=== PATIENT | female | born 1975 | race Asian ===

== ENCOUNTER → 2016-03-16 | Outpatient (CLI) | payer OTHER ==
[2016-03-16 11:07] LABS: HEMATOCRIT 38.9 % (35.0-46.0); MEAN CELL VOLUME 80.7 FL (80.0-100.0); MEAN CORPUSCULAR HEMOGLOBIN 26.1 PG (27.0-34.0); MEAN CORPUSCULAR HGB CONC 32.3 % (32.0-36.0); PLATELET COUNT 321 TH/MM3 (150-450); RED BLOOD COUNT 4.82 MIL/MM3 (4.00-5.30); RED CELL DISTRIBUTION WIDTH 15.2 % (11.6-17.2); REVIEW FLAG FINAL; WHITE BLOOD COUNT 6.7 TH/MM3 (4.0-11.0)
[2016-03-16 11:54] LABS: ALKALINE PHOSPHATASE 56 U/L (45-117); ALT (GPT) 50 U/L (10-53); ANION GAP 7 MEQ/L (5-15); AST (GOT) 26 U/L (15-37); BLOOD UREA NITROGEN 12 MG/DL (7-18); CHLORIDE 109 MEQ/L (98-107); FERRITIN 17 NG/ML (8-252); FREE T4 1.14 NG/DL (0.76-1.46); GLOMERULAR FILTRATION RATE 102 ML/MIN (>89); GLUCOSE,FASTING 121 MG/DL (74-99); HDL CHOLESTEROL 57.2 MG/DL (40.0-60.0); LDL CHOLESTEROL 101 MG/DL (0-99); MAGNESIUM 2.2 MG/DL (1.5-2.5); POTASSIUM 3.8 MEQ/L (3.5-5.1); SODIUM (NA) 142 MEQ/L (136-145); TOTAL BILIRUBIN ADULT 0.2 MG/DL (0.2-1.0); TRANSFERRIN IRON PROFILE 322 MG/DL (200-360)
[2016-03-16 13:17] LABS: HEMOGLOBIN A1a 1.1 %; HEMOGLOBIN Ao 83.7 %; HEMOGLOBIN LA1C 2.1 %; HEMOGLOBIN P3 3.9 %
== END ==
LOC: CLAB 10:30
PROVIDERS: ATTEND Family Medicine
DX: E55.9 Vitamin D deficiency, unspecified (principal); R09.82 Postnasal drip; R51 Headache; E11.9 Type 2 diabetes mellitus without complications; I50.9 Heart failure, unspecified; I10 Essential (primary) hypertension; E78.9 Disorder of lipoprotein metabolism, unspecified; R53.83 Other fatigue; Z82.49 Family history of ischemic heart disease and other diseases of the circulatory system
CPT/HCPCS: 36415; 80053; 80061; 82043; 82306; 82607; 82728; 82746; 83036; 83540; 83550; 83735; 84439; 84443; 85027

== ENCOUNTER → 2017-04-29 | Outpatient (CLI) | payer OTHER ==
[~2017-04-29] MED LIST: ASA325 PO; CLON1TAB PO; COZA50TA PO; CYCL10TA PO; METF500T PO; REME15TA PO
[2017-04-29 09:06] LABS: HEMATOCRIT 38.3 % (35.0-46.0); HEMOGLOBIN 12.5 GM/DL (11.6-15.3); MEAN CELL VOLUME 80.5 FL (80.0-100.0); MEAN CORPUSCULAR HEMOGLOBIN 26.3 PG (27.0-34.0); MEAN CORPUSCULAR HGB CONC 32.7 % (32.0-36.0); MEAN PLATELET VOLUME 7.2 FL (7.0-11.0); PLATELET COUNT 375 TH/MM3 (150-450); RED BLOOD COUNT 4.76 MIL/MM3 (4.00-5.30); RED CELL DISTRIBUTION WIDTH 16.3 % (11.6-17.2); WHITE BLOOD COUNT 7.7 TH/MM3 (4.0-11.0)
[2017-04-29 09:22] LABS: ALBUMIN 4.1 GM/DL (3.4-5.0); AST (GOT) 21 U/L (15-37); BICARBONATE 25.2 MEQ/L (21.0-32.0); BLOOD UREA NITROGEN 13 MG/DL (7-18); CALCIUM 9.3 MG/DL (8.5-10.1); CHLORIDE 106 MEQ/L (98-107); CHOLESTEROL 157 MG/DL (120-200); GLOMERULAR FILTRATION RATE 92 ML/MIN (>89); GLUCOSE,FASTING 135 MG/DL (74-99); SODIUM (NA) 141 MEQ/L (136-145)
[2017-04-29 09:48] LABS: % SATURATION IRON PROFILE 8.1 % (20-50); ALKALINE PHOSPHATASE 58 U/L (45-117); ALT (GPT) 30 U/L (10-53); CHOLESTEROL/ HDL RATIO 2.54 RATIO; FERRITIN 10 NG/ML (8-252); FOLATE 18.8 NG/ML (3.1-17.5); FREE T4 1.13 NG/DL (0.76-1.46); HDL CHOLESTEROL 61.6 MG/DL (40.0-60.0); IRON (FE) 38 MCG/DL (50-170); LDL CHOLESTEROL 62 MG/DL (0-99); TOTAL BILIRUBIN ADULT 0.5 MG/DL (0.2-1.0); TOTAL IRON BINDING CAPACITY 469 MCG/DL (250-450); TRIGLYCERIDES 165 MG/DL (42-150)
[2017-04-29 13:47] LABS: HEMOGLOBIN A1C 6.5 % (4.3-6.0)
== END ==
LOC: CLAB 08:25
PROVIDERS: ATTEND Family Medicine
DX: R09.82 Postnasal drip (principal); R73.02 Impaired glucose tolerance (oral); R51 Headache; R53.83 Other fatigue; E66.9 Obesity, unspecified; Z82.49 Family history of ischemic heart disease and other diseases of the circulatory system
CPT/HCPCS: 36415; 80053; 80061; 82306; 82607; 82728; 82746; 83036; 83540; 83550; 84439; 84443; 85027

== ENCOUNTER 2017-05-01 13:01 | Inpatient (IN) | payer OTHER ==
[~2017-05-01] VITALS: Ht 160 cm; Wt 72.4 kg
[~2017-05-01 13:01] MED LIST changes: -ASA325 PO; -CLON1TAB PO; -CYCL10TA PO; -REME15TA PO
[2017-05-01] MEDS ORDERED: GADOBENATE DIM PF 529 MG/ML 5 ML VIAL (for RAD MRI) IV ONE (13:02)
[2017-05-01 13:03] VITALS: BP 197/91; PULSE 92; RESP 18; O2SAT 100
[2017-05-01] MEDS ORDERED: SODIUM CHLORIDE 0.9% FLUSH 10 ML FLUSH IVF PRN (13:15)
[2017-05-01 13:41] LABS: AUTOMATED NEUTROPHIL # 5.2 TH/MM3 (1.8-7.7); BASOPHIL % 0.6 % (0.0-2.0); EOSINOPHIL % 0.1 % (0.0-4.0); HEMATOCRIT 40.9 % (35.0-46.0); HEMOGLOBIN 13.4 GM/DL (11.6-15.3); LYMPH % 21.2 % (9.0-44.0); LYMPHOCYTE # 1.5 TH/MM3 (1.0-4.8); MEAN CELL VOLUME 80.5 FL (80.0-100.0); MEAN CORPUSCULAR HEMOGLOBIN 26.4 PG (27.0-34.0); MEAN CORPUSCULAR HGB CONC 32.8 % (32.0-36.0); MEAN PLATELET VOLUME 7.3 FL (7.0-11.0); MONO % 3.9 % (0.0-8.0); MONOCYTE # 0.3 TH/MM3 (0-0.9); NEUT % 74.2 % (16.0-70.0); PLATELET COUNT 413 TH/MM3 (150-450); RED BLOOD COUNT 5.07 MIL/MM3 (4.00-5.30); RED CELL DISTRIBUTION WIDTH 16.4 % (11.6-17.2); WHITE BLOOD COUNT 6.9 TH/MM3 (4.0-11.0)
--- NOTE | 2017-05-01 13:47 | RADRPT ---
EXAM DATE/TIME: 05/01/2017 13:33 [facility] COMPARISON: No previous studies available for comparison. INDICATIONS : Intermittent right facial numbness, exhaustion. RADIATION DOSE: 34.79 CTDIvol (mGy) MEDICAL HISTORY : Hypertension. Diabetes mellitus type 2. SURGICAL HISTORY : None. ENCOUNTER: Initial ACUITY: 3 days PAIN SCALE: 0/10 LOCATION: cranial TECHNIQUE: Multiple contiguous axial images were obtained of the head. Using automated exposure control and adj ustment of the mA and/or kV according to patient size, radiation dose was kept as low as reasonably a chievable to obtain optimal diagnostic quality images. DICOM format image data is available electro nically for review and comparison. FINDINGS: CEREBRUM: The ventricles are normal for age. No evidence of midline shift, mass lesion, hemorrhage or acute in farction. No extra-axial fluid collections are seen. POSTERIOR FOSSA: The cerebellum and brainstem are intact. The 4th ventricle is midline. The cerebellopontine angle i s unremarkable. EXTRACRANIAL: The visualized portion of the orbits is intact. SKULL: The calvaria is intact. No evidence of skull fracture. CONCLUSION: Normal examination. Gokul Hensley MD on May 01, 2017 at 13:43 Board Certified Radiologist. This report was verified electronically.
[2017-05-01 13:49] LABS: PROTHROMBIN TIME - PATIENT 9.8 SEC (9.8-11.6)
[2017-05-01 13:56] LABS: ALBUMIN 4.3 GM/DL (3.4-5.0); AST (GOT) 19 U/L (15-37); BICARBONATE 25.2 MEQ/L (21.0-32.0); BLOOD UREA NITROGEN 11 MG/DL (7-18); CALCIUM 9.7 MG/DL (8.5-10.1); CHLORIDE 102 MEQ/L (98-107); CREATININE 0.74 MG/DL (0.50-1.00); GLOMERULAR FILTRATION RATE 86 ML/MIN (>89); GLUCOSE,RANDOM 135 MG/DL (74-106); MAGNESIUM 2.4 MG/DL (1.5-2.5); SODIUM (NA) 138 MEQ/L (136-145)
[2017-05-01 13:57] LABS: ALT (GPT) 36 U/L (10-53)
[2017-05-01 14:01] LABS: ALKALINE PHOSPHATASE 64 U/L (45-117); TOTAL BILIRUBIN ADULT 0.5 MG/DL (0.2-1.0); TOTAL PROTEIN 8.8 GM/DL (6.4-8.2); TROPONIN I LESS THAN 0.02 NG/ML (0.02-0.05)
--- NOTE | 2017-05-01 14:13 | EKG ---
Date Performed: 05/01/2017 Time Performed: 13:07:28 PTAGE: 41 years EKG: Sinus rhythm POSSIBLE LEFT ATRIAL ENLARGEMENT NONSPECIFIC T-WAVE ABNORMALITY BORDERLINE ECG NO PREVIOUS TRACING DOCTOR: Manish Del Valle Interpretating Date/Time 05/01/2017 14:12:28
--- NOTE | 2017-05-01 15:26 | RADRPT ---
EXAM DATE/TIME: 05/01/2017 14:36 [facility] COMPARISON: No previous studies available for comparison. INDICATIONS : Aphasia. Right sided facial tingling. CONTRAST: 14 cc Multihance (gadobenate) IV MEDICAL HISTORY : Hypertension. Diabetes mellitus type 2. SURGICAL HISTORY : section. ENCOUNTER: Initial ACUITY: 1 day PAIN SCORE: 0/10 LOCATION: cranial TECHNIQUE: Multiplanar, multisequence MRI of the brain was performed both prior to and following the administrat ion of paramagnetic contrast. FINDINGS: CEREBRUM: The ventricles are normal for age. No evidence of midline shift, mass lesion, hemorrhage or acute in farction. No extraaxial fluid collections are seen. The pituitary gland and suprasellar cistern are normal in configuration. WHITE MATTER: No significant signal abnormalities are seen in the white matter. POSTERIOR FOSSA: The cerebellum and brainstem are intact. The 4th ventricle is midline. The cerebellopontine angle is unremarkable. The cerebellar tonsils are normal in position. DIFFUSION IMAGING: No focal areas of restricted diffusion are seen. No evidence of acute infarction. EXTRACRANIAL: The visualized portions of the orbits and paranasal sinuses are unremarkable. POST-CONTRAST: No abnormal areas of parenchymal or dural enhancement. No evidence of blood-brain barrier breakdown. CONCLUSION: 1. Negative pre-and postcontrast MRI of the brain. Frantz Bowers MD on May 01, 2017 at 15:21 Board Certified Radiologist. This report was verified electronically.
--- NOTE | 2017-05-01 15:28 | RADRPT ---
EXAM DATE/TIME: 05/01/2017 13:54 [facility] COMPARISON: No previous studies available for comparison. INDICATIONS : Midsternal chest pains, with pressure. Right arm numbness. MEDICAL HISTORY : None. SURGICAL HISTORY : None. ENCOUNTER: Initial ACUITY: 1 day PAIN SCORE: 9/10 LOCATION: Bilateral chest FINDINGS: A single view of the chest demonstrates the lungs to be symmetrically aerated without evidence of mas s, infiltrate or effusion. The cardiomediastinal contours are unremarkable. Osseous structures are intact. CONCLUSION: 1. No acute cardiopulmonary disease. Chaitanya Farooq MD on May 01, 2017 at 15:25 Board Certified Radiologist. This report was verified electronically.
[2017-05-01] MEDS ORDERED: DEXTROSE 50% IN WATER 50 ML VIAL(D50) IV PUSH PRN ×2 (16:00→16:45)
[2017-05-01] MEDS ORDERED: SODIUM CHLORIDE 0.9% FLUSH 10 ML FLUSH IV FLUSH PRN ×2 (16:00→16:15)
[2017-05-01] MEDS ORDERED: GLUCAGON 1 MG/ML VIAL OTHER PRN ×2 (16:00→16:45)
[2017-05-01] MEDS: ASPIRIN 325 MG TAB PO SCH (16:00)
[2017-05-01] MEDS ORDERED: NALOXONE HCL 0.4 MG/ML AMP IV PUSH PRN (16:15)
[2017-05-01] MEDS ORDERED: ONDANSETRON HCL 4 MG/2 ML VIAL IVP PRN (16:15)
[2017-05-01] MEDS ORDERED: LACTULOSE SYRUP 20 GM/30 ML CUP PO PRN (16:15)
[2017-05-01] MEDS ORDERED: MAGNESIUM HYDROXIDE SUSP 30 ML CUP PO PRN (16:15)
[2017-05-01] MEDS ORDERED: SENNOSIDES 8.6 MG TAB PO PRN (16:15)
[2017-05-01] MEDS ORDERED: BISACODYL 10 MG SUPP RECTAL PRN (16:15)
--- NOTE | 2017-05-01 16:16 | PD ---
HPI Chief Complaint: Numbness/Tingling Time Seen by Provider: 13:03 Travel History International Travel<30 days: No Contact w/Intl Traveler<30days: No Traveled to known affect area: No History of Present Illness HPI This is Ping Lopez 1975, name changed in EMR for patient privacy. This is a 41-year-old female presents emergency department for evaluation of numbness and tingling in the right upper extremity as well as some difficulty finding words started about 10 PM prior to presentation to the ER. 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 Patient then began complaining of some numbness and tingling her right upper and right lower extremity. At the insistence of her colleagues she was brought to the emergency department for evaluation. Patient appears quite anxious on arrival but is concerned that she might of had a TIA or stroke. She is a diabetic and has high blood pressure. Symptoms are moderate, her speech is resolved, duration is about 3 hours, context as above. PFSH Past Medical History Patient Takes Glucophage: Yes (04/30/17 2100) Hypertension: Yes ?: Not LMP: 3 DAYS AGO Past Surgical History Surgical History: No Previous Surgery Section: Yes (X 3) Gynecologic Surgery: Yes (3 c sections) Joint Replacement: No Pacemaker: No Other Surgery: Yes Social History Alcohol Use: No Tobacco Use: No Substance Use: No Allergies-Medications (Allergen,Severity, Reaction): Coded Allergies: Sulfa (Sulfonamide Antibiotics) (Unverified Allergy, Severe, Rash, 05/01/17 ) Reported Meds & Prescriptions Reported Meds & Active Scripts Active Review of Systems Except as stated in HPI: all other systems reviewed are Neg Physical Exam Narrative GENERAL: Well-developed well-nourished no obvious distress, quite pleasant. SKIN: Focused skin assessment warm/dry. HEAD: Atraumatic. Normocephalic. EYES: Pupils equal and round. No scleral icterus. No injection or drainage. EOMI ENT: No nasal bleeding or discharge. Mucous membranes pink and moist. NECK: Trachea midline. No JVD. CARDIOVASCULAR: Regular rate and rhythm. No murmur appreciated. RESPIRATORY: No accessory muscle use. Clear to auscultation. Breath sounds equal bilaterally. GASTROINTESTINAL: Abdomen soft, non-tender, nondistended. Hepatic and splenic margins not palpable. MUSCULOSKELETAL: No obvious deformities. No clubbing. No cyanosis. No edema. NEUROLOGICAL: Awake and alert. Cranial nerves II through XII are grossly intact and nonfocal, she has 5 out of 5 strength in all 4 extremities, [place] stroke assessment is negative, no pronator drift, ambulates with an even narrow-base gait. PSYCHIATRIC: Anxious affect, anxious mood. Insight and judgment appear to be normal at this time Data Data Last Documented VS Vital Signs Date Time Temp Pulse Resp B/P (MAP) Pulse Ox O2 Delivery O2 Flow Rate FiO2 05/01/17 13:03 92 18 197/91 (126) 100 Orders Orders Electrocardiogram (05/01/17 13:05) Ckmb (Isoenzyme) Profile (05/01/17 13:05) Complete Blood Count With Diff (05/01/17 13:05) Comprehensive Metabolic Panel (05/01/17 13:05) Magnesium (Mg) (05/01/17 13:05) Prothrombin Time / Inr (Pt) (05/01/17 13:05) Act Partial Throm Time (Ptt) (05/01/17 13:05) Troponin I (05/01/17 13:05) Chest, Single Ap (05/01/17 13:05) Ecg Monitoring (05/01/17 13:05) Iv Access Insert/Monitor (05/01/17 13:05) Oximetry (05/01/17 13:05) Oxygen Administration (05/01/17 13:05) Sodium Chloride 0.9% Flush (Ns Flush) (05/01/17 13:15) Ct Brain W/O Iv Contrast(Rout) (05/01/17 ) Urinalysis - C+S If Indicated (05/01/17 13:05) Ed Urine Pregnancytest Poc (05/01/17 13:05) Bedside Glucose BIJAN.CSUGAR (05/01/17 13:09) Mri Brain W&W/O Contrast (05/01/17 ) Gadobenate Dimeglimine Pf Inj (Multihanc (05/01/17 13:02) Nih Stroke Scale - Nihss .On admission and discharge (05/01/17 15:58) Case Management Consult (05/01/17 ) Activity Bed Rest (05/01/17 15:58) Nursing Bedside Swallow Assess .ONCE (05/01/17 15:58) Scd Bilateral/Knee High BIJAN.QSHIFT (05/01/17 15:58) Hemoglobin (Hgb) A1c (05/01/17 15:58) Lipid Profile (05/02/17 06:00) Us Carotid Arteries Comp Bilat (05/01/17 ) Mra Brain W/O Contrast (Cow) (05/01/17 ) Resp Oxygen Nc Stroke (05/01/17 ) ^ Hold Medication (05/01/17 15:58) Sodium Chloride 0.9% Flush (Ns Flush) (05/01/17 21:00) Sodium Chloride 0.9% Flush (Ns Flush) (05/01/17 16:00) Aspirin (Aspirin) (05/01/17 16:00) Bedside Glucose BIJAN.CSUGAR (05/01/17 15:58) ^ Discontinue Insulin Orders (05/01/17 15:58) Insulin Aspart Supplemtl Scale (Novolog (05/01/17 17:00) Dextrose 50% In [place] (Vial) Inj (D50w (Vi (05/01/17 16:00) Glucagon Inj (Glucagon Inj) (05/01/17 16:00) Consult Rehab Medicine (05/01/17 15:58) 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 / Telemetry BIJAN.Q8H (05/01/17 15:58) Consult Stroke Navigator (05/01/17 ) Place In Observation (05/01/17 ) Code Status (05/01/17 16:06) Vital Signs (Adult) Q4H (05/01/17 16:06) Neuro Checks Q4H (05/01/17 16:06) Bedside Glucose BIJAN.CSUGAR (05/01/17 16:06) 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 / Telemetry .CONTINUOUS (05/01/17 16:06) Diet Regular Basic (05/01/17 Dinner) Sodium Chloride 0.9% Flush (Ns Flush) (05/01/17 16:15) Sodium Chloride 0.9% Flush (Ns Flush) (05/01/17 21:00) Acetaminophen (Tylenol) (05/01/17 16:15) Ondansetron Inj (Zofran Inj) (05/01/17 16:15) Comprehensive Metabolic Panel (05/02/17 06:00) Complete Blood Count With Diff (05/02/17 06:00) Naloxone Inj (Narcan Inj) (05/01/17 16:15) Docusate Sodium-Senna (Rebeka-Colace) (05/01/17 21:00) Magnesium Hydroxide Liq (Milk Of Magnesi (05/01/17 16:15) Sennosides (Senokot) (05/01/17 16:15) Bisacodyl Supp (Dulcolax Supp) (05/01/17 16:15) Lactulose Liq (Lactulose Liq) (05/01/17 16:15) Consult Neurology (05/01/17 ) Admit Order (Ed Use Only) (05/01/17 ) Echo 2d Comp With Doppler (05/02/17 ) Labs Laboratory Tests Test 05/01/17 13:10 White Blood Count 6.9 TH/MM3 Red Blood Count 5.07 MIL/MM3 Hemoglobin 13.4 GM/DL Hematocrit 40.9 % Mean Corpuscular Volume 80.5 FL Mean Corpuscular Hemoglobin 26.4 PG Mean Corpuscular Hemoglobin Concent 32.8 % Red Cell Distribution Width 16.4 % Platelet Count 413 TH/MM3 Mean Platelet Volume 7.3 FL Neutrophils (%) (Auto) 74.2 % Lymphocytes (%) (Auto) 21.2 % Monocytes (%) (Auto) 3.9 % Eosinophils (%) (Auto) 0.1 % Basophils (%) (Auto) 0.6 % Neutrophils # (Auto) 5.2 TH/MM3 Lymphocytes # (Auto) 1.5 TH/MM3 Monocytes # (Auto) 0.3 TH/MM3 Eosinophils # (Auto) 0.0 TH/MM3 Basophils # (Auto) 0.0 TH/MM3 CBC Comment DIFF FINAL Differential Comment Prothrombin Time 9.8 SEC Prothromb Time International Ratio 1.0 RATIO Activated Partial Thromboplast Time 24.7 SEC Blood Urea Nitrogen 11 MG/DL Creatinine 0.74 MG/DL Random Glucose 135 MG/DL Total Protein 8.8 GM/DL Albumin 4.3 GM/DL Calcium Level 9.7 MG/DL Magnesium Level 2.4 MG/DL Alkaline Phosphatase 64 U/L Aspartate Amino Transf (AST/SGOT) 19 U/L Alanine Aminotransferase (ALT/SGPT) 36 U/L Total Bilirubin 0.5 MG/DL Sodium Level 138 MEQ/L Potassium Level 3.6 MEQ/L Chloride Level 102 MEQ/L Carbon Dioxide Level 25.2 MEQ/L Anion Gap 11 MEQ/L Estimat Glomerular Filtration Rate 86 ML/MIN Hemoglobin A1c 6.5 % Total Creatine Kinase 68 U/L Troponin I LESS THAN 0.02 NG/ML MDM Medical Decision Making Medical Screen Exam Complete: Yes Emergency Medical Condition: Yes Differential Diagnosis Continuing CVA is unlikely, TIA, electrolyte abnormality, hypertensive emergency , anxiety attack Narrative Course Patient with right sided numbness and tingling and some difficulty finding words earlier today. Initial workup negative including CT head and MRI of the brain. Was somewhat hypertensive on arrival but her blood pressure is improving without aggressive therapy in the ER. She was offered Ativan p.o. and she declined. Will be admitted for observation for possible TIA. Diagnosis Primary Impression: TIA (transient ischemic attack) Qualified Codes: G45.9 - Transient cerebral ischemic attack, unspecified Admitting Information Admitting Physician Requests: Observation Scripts Clonazepam (Clonazepam) 1 Mg Tab 1 MG PO HS Y for insomnia, #30 TAB 0 Refills Prov: Yasmine Jackson MD 05/02/17 Aspirin (Px Aspirin) 325 Mg Tab 325 MG PO DAILY, #30 TAB Prov: Yasmine Jackson MD 05/02/17 Cyclobenzaprine (Flexeril) 10 Mg Tab 10 MG PO TID Y for muscle spasm, #90 TAB 3 Refills Prov: Yasmine Jackson MD 05/02/17 Losartan (Cozaar) 50 Mg Tab 50 MG PO HS for Blood Pressure Management, #30 TAB 3 Refills Prov: Yasmine Jackson MD 05/02/17 Metformin (Metformin) 500 Mg Tab 500 MG PO BIDPC for Blood Sugar Management, #60 TAB 3 Refills Prov: Yasmine Jackson MD 05/02/17 Condition: Stable Anil Schulz MD May 01, 2017 16:16
--- NOTE | 2017-05-01 16:21 | MB ---
cc: Omar Vega MD, PhD DATE: 05/01/2017 REASON FOR CONSULTATION: TIA. 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 She had no weakness or motor deficits. The symptoms have been improving. She denies headaches. She denies any visual complaints. Of note, she had similar symptoms about a week ago on Saturday and Saturday. She has a history of hypertension. At times, the blood pressure does elevate. PAST MEDICAL HISTORY: Remarkable for hypertension as well as hyperlipidemia. MEDICATIONS AT HOME: She takes Cozaar as well as Metformin. She is not on any antiplatelet medications. NEUROLOGICAL EXAMINATION: Blood pressure 197/91, pulse is 92, respiratory rate is 18. Higher cortical functions at this time are normal, including speech. Cranial nerves are intact, although she does have some diminished sensitivity in the right side of the face to soft touch. There is some slight diminished sensitivity in the right upper extremity to soft touch as well. Visual collins are normal to confrontation. The pupils are 2 mm, symmetric and reactive to light. The extraocular movements are intact. There is no facial asymmetry. She can activate muscles of facial expression normally. Tongue protrudes midline. Palate elevates symmetrically. On motor examination, she has got 5/5 strength of all major muscle groups of both upper extremities. She has got no drift. Fine motor skills are normal. Reflexes are symmetric. She has got give-way weakness in both legs, mainly due to pain. She does complain of significant muscular pain mainly in the left leg and left hip area, but it does radiate down the left leg. Reflexes are 1+, symmetric. IMAGING STUDIES: Brain MRI is within normal limits. The CT scan of the brain is also normal. Chest x-ray is normal. LABORATORY DATA: White count is 6900, hemoglobin 13.4, hematocrit 40.9%, platelet count is 413,000. PT 9.8, INR 1.0, APTT 24.7. Sodium is 138, potassium 3.6, chloride 102, CO2 25.2, BUN is 11, creatinine 0.74, glucose 135, calcium 9.7, magnesium 2.4, AST 19, ALT is 36. Troponin less than 0.02. PT 9.8, INR 1, aPTT 24.7. EKG Sinus rhythm. There is evidence of left atrial enlargement, possibly nonspecific T-wave abnormalities are identified. IMPRESSION: Suspect this is probably a left hemisphere transient ischemic accident . RECOMMENDATIONS: Would allow permissive hypertension at the present time treating the blood pressure if it gets over 200/100. We will recommend starting aspirin 325 mg daily. I also recommend carotid ultrasound, echocardiogram, monitor cardiac telemetry, rule out atrial fibrillation. We will check a lipid panel as well. Would also recommend labs to rule out hypercoagulable state including a lupus anticoagulant, anticardiolipin antibody panel, Leiden Factor V, prothrombin gene mutation, protein S and protein C. If the above workup is negative, consider a transesophageal echocardiogram, which could be obtained as an outpatient. Regarding her left hip pain and leg pain, consider MRI of the left hip, although at the present time, the patient would like to hold off on this evaluation. Thank you for asking me to see this nice patient in consult. Omar Vega MD, PhD LONA/AYDE , 03:58 PM , 04:19 PM
--- NOTE | 2017-05-01 16:38 | HHI.HP ---
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 She reports that her first symptoms started on Saturday (5 days prior to admission ). Patient experiences 3 separate episodes of R arm parasthesias lasting about 20 minutes each which self-resolved. At that time, she also reported R lower facial tingling. Denies any headache, though does report possibly worse vision in the L eye over the last week. Patient has a known history of HTN, on Cozaar, and reports that surrounding these episodes, her BPs ranged 170s systolic. On the day of admission, patient was prompted to come into the ED after recurrence of her R arm numbness and tingling. Patient also was noted by those around her to experience some word finding difficulty which was transient. Patient is seen in the ED reporting symptoms are slightly improved. MRI without evidence of acute CVA. CT negative for acute changes as well. Dr. Vega, neurology at the bedside. Review of Systems Constitutional: COMPLAINS OF: Fatigue, DENIES: Diaphoretic episodes, Fever, Weight gain, Weight loss, Chills, Dizziness, Change in appetite, Night Sweats Eyes: DENIES: Eye pain, Vision loss, Double Vision Ears, nose, mouth, throat: DENIES: Hearing loss, Nasal discharge, Oral lesions , Throat pain Respiratory: DENIES: Cough, Wheezing, Shortness of breath Cardiovascular: DENIES: Syncope, Dyspnea on Exertion, Lower Extremity Edema Gastrointestinal: DENIES: Abdominal pain, Constipation, Diarrhea, Nausea, Vomiting Musculoskeletal: DENIES: Joint pain, Back pain, Neck pain Integumentary: DENIES: Pruritus, Rash Neurologic: COMPLAINS OF: Paresthesias, DENIES: Headache, Poor Balance Psychiatric: DENIES: Confusion Past Family Social History Past Medical History HTN Impaired glucose metabolism Past Surgical History section Reported Medications Allergies: Coded Allergies: Sulfa (Sulfonamide Antibiotics) (Unverified Allergy, Severe, Rash, 05/01/17 ) Active Ordered Medications Cozaar 50mg PO hs Metformin 500mg PO BIDPC Family History Grandmother with HTN and DM Social History Lives with and three children. 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 Physical Exam Vital Signs Vital Signs Date Time Temp Pulse Resp B/P (MAP) Pulse Ox O2 Delivery O2 Flow Rate FiO2 05/01/17 13:03 92 18 197/91 (126) 100 Physical Exam GENERAL: This is a well-nourished, well-developed patient, in no apparent distress. SKIN: No rashes, ecchymoses or lesions. Cool and dry. HEAD: Atraumatic. Normocephalic. No temporal or scalp tenderness. EYES: Pupils equal round and reactive. Extraocular motions intact. No scleral icterus. No injection or drainage. ENT: Nose without bleeding, purulent drainage or septal hematoma. Throat without erythema, tonsillar hypertrophy or exudate. Uvula midline. Airway patent. NECK: Trachea midline. No JVD or lymphadenopathy. Supple, nontender, no meningeal signs. CARDIOVASCULAR: Regular rate and rhythm without audible murmurs, gallops, or rubs. RESPIRATORY: Clear to auscultation. Breath sounds equal bilaterally. No wheezes , rales, or rhonchi. GASTROINTESTINAL: Abdomen soft, non-tender, nondistended. No hepato-splenomegaly , or palpable masses. No guarding. MUSCULOSKELETAL: Extremities without clubbing, cyanosis, or edema. No joint tenderness, effusion, or edema noted. No calf tenderness. NEUROLOGICAL: Awake and alert. Cranial nerves II through XII intact. Motor and sensory grossly within normal limits. Five out of 5 muscle strength in all muscle groups. Normal speech. +Subjective parasthesias in R arm dorsal aspect. 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 TTP over the L hip bursa. There is pain over L hip radiating down lateral leg to just below level of the knee, worse with movement. Laboratory Laboratory Tests Test 05/01/17 13:10 White Blood Count 6.9 Red Blood Count 5.07 Hemoglobin 13.4 Hematocrit 40.9 Mean Corpuscular Volume 80.5 Mean Corpuscular Hemoglobin 26.4 Mean Corpuscular Hemoglobin Concent 32.8 Red Cell Distribution Width 16.4 Platelet Count 413 Mean Platelet Volume 7.3 Neutrophils (%) (Auto) 74.2 Lymphocytes (%) (Auto) 21.2 Monocytes (%) (Auto) 3.9 Eosinophils (%) (Auto) 0.1 Basophils (%) (Auto) 0.6 Neutrophils # (Auto) 5.2 Lymphocytes # (Auto) 1.5 Monocytes # (Auto) 0.3 Eosinophils # (Auto) 0.0 Basophils # (Auto) 0.0 CBC Comment DIFF FINAL Differential Comment Prothrombin Time 9.8 Prothromb Time International Ratio 1.0 Activated Partial Thromboplast Time 24.7 Blood Urea Nitrogen 11 Creatinine 0.74 Random Glucose 135 Total Protein 8.8 Albumin 4.3 Calcium Level 9.7 Magnesium Level 2.4 Alkaline Phosphatase 64 Aspartate Amino Transf (AST/SGOT) 19 Alanine Aminotransferase (ALT/SGPT) 36 Total Bilirubin 0.5 Sodium Level 138 Potassium Level 3.6 Chloride Level 102 Carbon Dioxide Level 25.2 Anion Gap 11 Estimat Glomerular Filtration Rate 86 Total Creatine Kinase 68 Troponin I LESS THAN 0.02 Result Diagram: 05/01/17 1310 05/01/17 1310 Imaging Last Impressions Chest X-Ray 05/01/17 1305 Signed Impressions: Service Date/Time: Monday, May 01, 2017 13:54 - CONCLUSION: 1. No acute cardiopulmonary disease. Chaitanya Farooq MD Head CT 05/01/17 0000 Signed Impressions: Service Date/Time: Monday, May 01, 2017 13:33 - CONCLUSION: Normal examination. Gokul Hensley MD Brain MRI 05/01/17 0000 Signed Impressions: Service Date/Time: Monday, May 01, 2017 14:36 - CONCLUSION: 1. Negative pre-and postcontrast MRI of the brain. Frantz Bowers MD Caprini VTE Risk Assessment Caprini VTE Risk Assessment: Mod/High Risk (score >= 2) Caprini Risk Assessment Model Point Value = 1 Point Value = 2 Point Value = 3 Point Value = 5 Age 41-60 Minor surgery BMI > 25 kg/m2 Swollen legs Varicose veins or History of unexplained or recurrent spontaneous Oral contraceptives or hormone replacement Sepsis (< 1 month) Serious lung disease, including pneumonia (< 1 month) Abnormal pulmonary function Acute myocardial infarction Congestive heart failure (< 1 month) History of inflammatory bowel disease Medical patient at bed rest Age 61-74 Arthroscopic surgery Major open surgery (> 45 min) Laparoscopic surgery (> 45 min) Malignancy Confined to bed (> 72 hours) Immobilizing plaster cast Central venous access Age >= 75 History of VTE Family history of VTE Factor V Leiden Prothrombin [id number] Lupus anticoagulant Anticardiolipin antibodies Elevated serum homocysteine Heparin-induced thrombocytopenia Other congenital or acquired thrombophilia Stroke (< 1 month) Elective arthroplasty Hip, pelvis, or leg fracture Acute spinal cord injury (< 1 month) Prophylaxis Regimen Total Risk Factor Score Risk Level Prophylaxis Regimen 0-1 Low Early ambulation 2 Moderate Order ONE of the following: *Sequential Compression Device (SCD) *Heparin 5000 units SQ BID 3-4 Higher Order ONE of the following medications: *Heparin 5000 units SQ TID *Enoxaparin/Lovenox 40 mg SQ daily (WT < 150 kg, CrCl > 30 mL/min) *Enoxaparin/Lovenox 30 mg SQ daily (WT < 150 kg, CrCl > 10-29 mL/min) *Enoxaparin/Lovenox 30 mg SQ BID (WT < 150 kg, CrCl > 30 mL/min) AND/OR *Sequential Compression Device (SCD) 5 or more Highest Order ONE of the following medications: *Heparin 5000 units SQ TID (Preferred with Epidurals) *Enoxaparin/Lovenox 40 mg SQ daily (WT < 150 kg, CrCl > 30 mL/min) *Enoxaparin/Lovenox 30 mg SQ daily (WT < 150 kg, CrCl > 10-29 mL/min) *Enoxaparin/Lovenox 30 mg SQ BID (WT < 150 kg, CrCl > 30 mL/min) AND *Sequential Compression Device (SCD) Assessment and Plan Assessment and Plan 41yoF admitted with: Acute neurological change, TIA vs hypertensive encephalopathy Uncontrolled HTN Impaired glucose metabolism Neurology consulted Telemetry MRI/MRA Neurochecks Bed rest and permissive HTN, per neuro Will treat hypertension >200/100 Hold home Metformin and Cozaar. Code Status FULL CODE Discussed Condition With Patient, Dr. Schulz, Dr. Vega, patient's , Dr. Cruz (PCP) Problem List: (1) TIA (transient ischemic attack) ICD Codes: G45.9 - Transient cerebral ischemic attack, unspecified Plan: Will monitor with neurochecks. Telemetry monitoring Neurology has been consulted, appreciate recs of Dr. Vega rehab medicine consulted 2D echo, carotid ultrasound pending. MD to be notified for any acute neurologic changes Permissive HTN, only treat >200/100 Hypercoagulable panel (2) Impaired glucose metabolism ICD Codes: R73.09 - Other abnormal glucose Plan: Monitor accu-checks. SSI Novolog low scale as needed. Hold home Metformin A1c pending for the am (3) Uncontrolled hypertension ICD Codes: I10 - Essential (primary) hypertension Plan: Monitor BP Hold home Cozaar Allow permissive HTN, treat >200/100 with Vasotec Yasmine Jackson MD May 01, 2017 16:38
[2017-05-01] MEDS ORDERED: GLUCAGON 1 MG/ML VIAL IM PRN (16:45)
[2017-05-01] MEDS ORDERED: ENALAPRILAT 1.25 MG/ML VIAL IV PUSH PRN (16:45)
[2017-05-01] MEDS ORDERED: INSULIN ASPART SUPPLEMENTAL SCALE SQ SCH (17:00)
--- NOTE | 2017-05-01 17:01 | RADRPT ---
EXAM DATE/TIME: 05/01/2017 16:31 [facility] COMPARISON: No previous studies available for comparison. INDICATIONS : Transient ischemic attack. MEDICAL HISTORY : Hypertension. . Diabetes. SURGICAL HISTORY : section. ENCOUNTER: Initial ACUITY: 1 day PAIN SCORE: 0/10 LOCATION: Bilateral neck PEAK SYSTOLIC VELOCITIES (cm/sec): ICA/CCA RATIO: Right: 1.0 Left: 1.0 ICA: Right: 85 Left: 90 CCA: Right: 83 Left: 89 ECA: Right: 83 Left: 96 VERTEBRAL: Right: 38 antegrade Left: 48 antegrade Elevated flow velocities and ICA/CCA ratios have been found to correlate with increased degrees of vessel stenosis, calculated as percentage of diameter relative to a normal segment of distal ICA/CCA FINDINGS: RIGHT CAROTID: No significant stenosis is visualized. The waveforms are within normal limits. LEFT CAROTID: No significant stenosis is visualized. The waveforms are within normal limits. VERTEBRAL ARTERIES: Antegrade flow is seen in both vertebral arteries. MISCELLANEOUS: None. CONCLUSION: Normal examination. Gokul Hensley MD on May 01, 2017 at 16:58 Board Certified Radiologist. This report was verified electronically.
[2017-05-01] MEDS: CYCLOBENZAPRINE HCL 10 MG TAB PO PRN (17:06)
[2017-05-01] MEDS: ACETAMINOPHEN 325 MG TAB PO PRN ×2 (17:06→23:49)
[2017-05-01] MEDS: INSULIN ASPART SUPPLEMENTAL SCALE SQ SCH ×2 (17:11→23:57)
[2017-05-01 17:12] VITALS: BP 178/102; PULSE 82; RESP 20; TEMP 98.2; O2SAT 98
[2017-05-01] MEDS ORDERED: SODIUM CHLORIDE 0.9% FLUSH 10 ML FLUSH IV FLUSH SCH (21:00)
[2017-05-01] MEDS ORDERED: clonazePAM 0.5 MG TAB PO SCH (21:00)
[2017-05-01 22:36] LABS: HEMOGLOBIN A1C 6.5 % (4.3-6.0)
--- NOTE | 2017-05-01 23:44 | RADRPT ---
EXAM DATE/TIME: 05/01/2017 22:46 [facility] COMPARISON: MRI BRAIN W & W/O CONTRAST, May 01, 2017, 14:36. INDICATIONS : TIA. MEDICAL HISTORY : Diabetes mellitus type 2. Hypertension. SURGICAL HISTORY : section. ENCOUNTER: Initial ACUITY: 1 day PAIN SCORE: 0/10 LOCATION: BRAIN Please note a normal MRA of the brain does not entirely exclude the possibility of a small aneurysm, nor the possibility of distal intracranial vessel disease. TECHNIQUE: 3D time of flight MRA was performed. Source images, multiplanar STS MIP, and 3D volume MIP reconstru ctions were reviewed. FINDINGS: There is excellent visualization of the major intracranial arteries out to the second-order branch ve ssels. There is no evidence for aneurysm, vessel truncation or stenosis, and no evidence for vascula r malformation. No flow seen in the anterior communicating artery or either PCOM. CONCLUSION: 1. No evidence of vessel truncation or aneurysm. 2. Incomplete habematolel of Banda. Ap Dan MD on May 01, 2017 at 23:40 Board Certified Radiologist. This report was verified electronically.
[2017-05-01] MEDS: SODIUM CHLORIDE 0.9% FLUSH 10 ML FLUSH IV FLUSH SCH (23:56)
[2017-05-01] MEDS: DOCUSATE SODIUM 50 MG/SENNA 8.6 MG TAB PO SCH (23:57)
[2017-05-02] VITALS (7 sets, daily range): BP systolic 125–161; BP diastolic 78–99; PULSE 80–103; RESP 16–20; TEMP 97.9–98.1; O2SAT 95–97
[2017-05-02] MEDS: CYCLOBENZAPRINE HCL 10 MG TAB PO PRN (01:33)
[2017-05-02 06:15] LABS: AUTOMATED NEUTROPHIL # 3.9 TH/MM3 (1.8-7.7); BASOPHIL # 0.1 TH/MM3 (0-0.2); EOSINOPHIL # 0.1 TH/MM3 (0-0.4); EOSINOPHIL % 1.1 % (0.0-4.0); HEMOGLOBIN 12.5 GM/DL (11.6-15.3); LYMPH % 31.2 % (9.0-44.0); MEAN CELL VOLUME 79.6 FL (80.0-100.0); MEAN CORPUSCULAR HEMOGLOBIN 26.1 PG (27.0-34.0); MEAN CORPUSCULAR HGB CONC 32.8 % (32.0-36.0); MEAN PLATELET VOLUME 7.4 FL (7.0-11.0); MONO % 7.1 % (0.0-8.0); MONOCYTE # 0.5 TH/MM3 (0-0.9); NEUT % 59.6 % (16.0-70.0); PLATELET COUNT 373 TH/MM3 (150-450); RED BLOOD COUNT 4.77 MIL/MM3 (4.00-5.30); RED CELL DISTRIBUTION WIDTH 16.2 % (11.6-17.2); WHITE BLOOD COUNT 6.5 TH/MM3 (4.0-11.0)
[2017-05-02 06:45] LABS: ALBUMIN 3.7 GM/DL (3.4-5.0); AST (GOT) 12 U/L (15-37); BICARBONATE 25.8 MEQ/L (21.0-32.0); BLOOD UREA NITROGEN 15 MG/DL (7-18); CALCIUM 9.2 MG/DL (8.5-10.1); CHLORIDE 106 MEQ/L (98-107); CREATININE 0.73 MG/DL (0.50-1.00); GLOMERULAR FILTRATION RATE 87 ML/MIN (>89); GLUCOSE,RANDOM 138 MG/DL (74-106); SODIUM (NA) 140 MEQ/L (136-145)
[2017-05-02 06:46] LABS: CHOLESTEROL 156 MG/DL (120-200)
[2017-05-02 06:49] LABS: ALKALINE PHOSPHATASE 55 U/L (45-117); ALT (GPT) 29 U/L (10-53); C-REACTIVE PROTEIN LESS THAN 0.29 MG/DL (0.00-0.30); CHOLESTEROL/ HDL RATIO 2.91 RATIO; HDL CHOLESTEROL 53.5 MG/DL (40.0-60.0); LDL CHOLESTEROL 75 MG/DL (0-99); TOTAL BILIRUBIN ADULT 0.5 MG/DL (0.2-1.0); TOTAL PROTEIN 7.5 GM/DL (6.4-8.2); TRIGLYCERIDES 136 MG/DL (42-150)
[2017-05-02] MEDS: ACETAMINOPHEN 325 MG TAB PO PRN (07:33)
[2017-05-02] MEDS: SODIUM CHLORIDE 0.9% FLUSH 10 ML FLUSH IV FLUSH SCH (08:38)
[2017-05-02] MEDS: ASPIRIN 325 MG TAB PO SCH (08:38)
[2017-05-02] MEDS: INSULIN ASPART SUPPLEMENTAL SCALE SQ SCH ×2 (08:39→17:07)
[2017-05-02] MEDS: DOCUSATE SODIUM 50 MG/SENNA 8.6 MG TAB PO SCH (08:40)
[2017-05-02] MEDS ORDERED: ENOXAPARIN SODIUM 40 MG/0.4 ML SYRINGE SQ SCH (09:00)
--- NOTE | 2017-05-02 09:40 | ECHRPT ---
Indication: TIA CONCLUSIONS The left ventricular systolic function is hyperdynamic with an estimated ejection fraction in the ra nge of 65- 70%. Mild concentric left ventricular hypertrophy. Probable impaired left ventricular relaxtion (grade 1 diastolic dysfunction). There is trace tricuspid valve regurgitation. Trivial pulmonary valve regurgitation. BP: / HR: Rhythm: MEASUREMENTS (Male / Female) Normal Values Technical Quality: 2D ECHO LV Diastolic Diameter PLAX 4.0 cm 4.2 - 5.9 / 3.9 - 5.3 cm LV Systolic Diameter PLAX 2.7 cm IVS Diastolic Thickness 1.3 cm 0.6 - 1.0 / 0.6 - 0.9 cm LVPW Diastolic Thickness 0.7 cm 0.6 - 1.0 / 0.6 - 0.9 cm LV Relative Wall Thickness 0.5 LA Systolic Diameter LX 3.7 cm 3.0 - 4.0 / 2.7 - 3.8 cm DOPPLER AV Peak Velocity 163.0 cm/s AV Peak Gradient 10.6 mmHg LVOT Peak Velocity 140.0 cm/s LVOT Peak Gradient 7.8 mmHg Mitral E Point Velocity 56.1 cm/s Mitral A Point Velocity 71.0 cm/s Mitral E to A Ratio 0.8 TR Peak Velocity 232.7 cm/s TR Peak Gradient 21.7 mmHg Right Atrial Pressure 5.0 mmHg Pulmonary Artery Systolic Pressu 26.7 mmHg Right Ventricular Systolic Press 26.7 mmHg FINDINGS LEFT VENTRICLE Normal left ventricular size. Mild concentric left ventricular hypertrophy. The left ventricular systolic function is hyperdynamic with an estimated ejection fraction in the ra nge of 65- 70%. No regional wall motion abnormalities are present. Probable impaired left ventricular relaxtion (grade 1 diastolic dysfunction). RIGHT VENTRICLE Normal right ventricular size and systolic function. LEFT ATRIUM The left atrial size is normal. RIGHT ATRIUM The right atrial size is normal. ATRIAL SEPTUM Normal atrial septal thickness AORTA The aortic root and proximal ascending aorta are normal in size on limited imaging. MITRAL VALVE Structurally normal mitral valve. No mitral valve regurgitation. No mitral valve stenosis. AORTIC VALVE Trileaflet aortic valve. No aortic valve stenosis or regurgitation. TRICUSPID VALVE Structurally normal tricuspid valve. There is trace tricuspid valve regurgitation. No tricuspid valve stenosis. PULMONARY VALVE The pulmonary valve is not well visualized. Trivial pulmonary valve regurgitation. PERICARDIUM No pericardial effusion. Ramírez Mancini DO (Electronically Signed) Final Date:02 May 2017 09:39
[2017-05-02] MEDS ORDERED: ASA325 PO (10:09)
[2017-05-02] MEDS ORDERED: CLON1TAB PO (10:09)
[2017-05-02] MEDS ORDERED: COZA50TA PO (10:09)
[2017-05-02] MEDS ORDERED: METF500T PO (10:09)
[2017-05-02] MEDS ORDERED: CYCL10TA PO (10:09)
--- NOTE | 2017-05-02 10:16 | HHI.FPPN ---
Subjective Remarks Patient sitting up on the bedside eating breakfast this am. Reports she is overall feeling better and slept 5 hours last night. Continues to have intermittent parasthesias in her R arm, but overall this is better. No headaches, no visual changes, no speech difficulty. Echo pending this am. BP improved overnight. Hypercoagulable panel pending this am. Hip and leg muscle pain is better and patient does not want to pursue any imaging or therapy modalities at this time. Objective Vitals Vital Signs Date Time Temp Pulse Resp B/P (MAP) Pulse Ox O2 Delivery O2 Flow Rate FiO2 05/02/17 08:22 98.0 80 20 161/99 (119) 95 05/02/17 04:34 88 16 151/88 (109) 96 05/02/17 03:31 103 05/02/17 03:28 86 05/02/17 01:07 21 05/01/17 17:12 98.2 82 20 178/102 (127) 98 05/01/17 13:03 92 18 197/91 (126) 100 Result Diagram: 05/02/17 0535 05/02/17 0535 Imaging Last Impressions Chest X-Ray 05/01/17 1305 Signed Impressions: Service Date/Time: Monday, May 01, 2017 13:54 - CONCLUSION: 1. No acute cardiopulmonary disease. Chaitanya Farooq MD Head Magnetic Resonance Angiography 05/01/17 0000 Signed Impressions: Service Date/Time: Monday, May 01, 2017 22:46 - CONCLUSION: 1. No evidence of vessel truncation or aneurysm. 2. Incomplete qawalangin of Banda. Ap Dan MD Head CT 05/01/17 0000 Signed Impressions: Service Date/Time: Monday, May 01, 2017 13:33 - CONCLUSION: Normal examination. Gokul Hensley MD Carotid Artery Ultrasound 05/01/17 0000 Signed Impressions: Service Date/Time: Monday, May 01, 2017 16:31 - CONCLUSION: Normal examination. Gokul Hensley MD Brain MRI 05/01/17 0000 Signed Impressions: Service Date/Time: Monday, May 01, 2017 14:36 - CONCLUSION: 1. Negative pre-and postcontrast MRI of the brain. Frantz Bowers MD Objective Remarks GENERAL: This is a well-nourished, well-developed patient, in no apparent distress. SKIN: No rashes, ecchymoses or lesions. Cool and dry. HEAD: Atraumatic. Normocephalic. No temporal or scalp tenderness. EYES: Pupils equal round and reactive. Extraocular motions intact. No scleral icterus. No injection or drainage. ENT: Nose without bleeding, purulent drainage or septal hematoma. Throat without erythema, tonsillar hypertrophy or exudate. Uvula midline. Airway patent. NECK: Trachea midline. No JVD or lymphadenopathy. Supple, nontender, no meningeal signs. CARDIOVASCULAR: Regular rate and rhythm without audible murmurs, gallops, or rubs. RESPIRATORY: Clear to auscultation. Breath sounds equal bilaterally. No wheezes , rales, or rhonchi. GASTROINTESTINAL: Abdomen soft, non-tender, nondistended. No hepato-splenomegaly , or palpable masses. No guarding. MUSCULOSKELETAL: Extremities without clubbing, cyanosis, or edema. No joint tenderness, effusion, or edema noted. No calf tenderness. NEUROLOGICAL: Awake and alert. Cranial nerves II through XII intact. Motor and sensory grossly within normal limits. Five out of 5 muscle strength in all muscle groups. Normal speech. +Subjective parasthesias in R arm dorsal aspect, though with interval improvement. 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 TTP over the L hip bursa. Urinary Catheter: No Vascular Central Line Catheter: No A/P Assessment and Plan 41yoF admitted with: Acute neurological change, TIA vs hypertensive encephalopathy Uncontrolled HTN Impaired glucose metabolism Neurology consulted Telemetry MRI/MRA without evidence of CVA Neurochecks Bed rest and permissive HTN, per neuro Will treat hypertension >200/100 Hold home Metformin and Cozaar. Discharge Planning Likely discharge to home today pending neurology clearance and echo results. Problem List: (1) TIA (transient ischemic attack) ICD Codes: G45.9 - Transient cerebral ischemic attack, unspecified Plan: Will monitor with neurochecks. Have been stable without acute neurologic change. Telemetry monitoring- no events over night Neurology has been consulted, appreciate recs of Dr. Vega Rehab medicine consulted 2D echo pending-- recommend outpatient AD upon discharge. Carotid ultrasound normal MD to be notified for any acute neurologic changes Permissive HTN, only treat >200/100 Hypercoagulable panel pending and drawn this am. (2) Impaired glucose metabolism ICD Codes: R73.09 - Other abnormal glucose Plan: Monitor accu-checks. SSI Novolog low scale as needed. Hold home Metformin Glucose mildly elevated this am. A1c 6.5 and discussed with patient this am. (3) Uncontrolled hypertension ICD Codes: I10 - Essential (primary) hypertension Plan: Monitor BP -- improved overnight. Hold home Cozaar Allow permissive HTN, treat >200/100 with Vasotec Problem Qualifiers (1) TIA (transient ischemic attack): Qualified Codes: G45.9 - Transient cerebral ischemic attack, unspecified Yasmine Jackson MD May 02, 2017 10:16
--- NOTE | 2017-05-02 15:44 | PD.PSY.CON ---
Provisional Diagnosis Admission Date May 01, 2017 at 16:17 [place] I. Unspecified psychosis History of Present Illness Service Psychiatry Consult Requested By Dr. 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 Patient was found pacing in hospital room with at bedside and noted to be refusing to speak with scenario writer stating that she is fine and she does need to be discharged home. Patient continued to refuse to engage in interview stated that she did not need to be here and that this is all part of a plan which upon exploring states that [place] in general had a plan against her and was "building a case" against her. Patient refused to continue to elaborate or provide any history at this time. Discussion with patient's , Mikael Lopez, reported the patient had obviously for the past one half weeks usually about 4 hours, has been stressed at work but did not identify any additional stressor recently. He states that he has no other concerns other than the possibility of patient may have had a TIA. Discussion with staff in treatment team reported the patient recently had been noted to be more disorganized recently unable to express adequate thoughts and become increasingly paranoid with staff around her and peers stating that people were against her and building a case against her. Discussion of having patient under Gaytan act was reviewed with patient's and patient due to concerns of patient's having decreased ability to care for self due to current symptoms and transferred to the medical/psychiatry for further evaluation and management. Plan was reviewed and discussed with treatment team attending Dr. Jackson. Past Family Social History Coded Allergies: Sulfa (Sulfonamide Antibiotics) (Unverified Allergy, Severe, Rash, 05/01/17 ) Active Scripts Clonazepam (Clonazepam) 1 Mg Tab, 1 MG PO HS Y for insomnia, #30 TAB 0 Refills Prov:Yasmine Jackson MD 05/02/17 Aspirin (Px Aspirin) 325 Mg Tab, 325 MG PO DAILY, #30 TAB Prov:Yasmine Jackson MD 05/02/17 Cyclobenzaprine (Flexeril) 10 Mg Tab, 10 MG PO TID Y for muscle spasm, #90 TAB 3 Refills Prov:Yasmine Jackson MD 05/02/17 Losartan (Cozaar) 50 Mg Tab, 50 MG PO HS for Blood Pressure Management, #30 TAB 3 Refills Prov:Yasmine Jackson MD 05/02/17 Metformin (Metformin) 500 Mg Tab, 500 MG PO BIDPC for Blood Sugar Management, # 60 TAB 3 Refills Prov:Yasmine Jackson MD 05/02/17 Current Medications Medications (Trade) Dose Ordered Sig/Cyril Route Start Time Stop Time Status Last Admin (NS Flush) 2 ml BID IV FLUSH 05/01/17 21:00 05/02/17 08:38 (NS Flush) 2 ml UNSCH PRN IV FLUSH 05/01/17 16:00 (Aspirin) 325 mg DAILY PO 05/01/17 16:00 05/02/17 08:38 (Tylenol) 650 mg Q4H PRN PO 05/01/17 16:15 05/02/17 07:33 (Zofran Inj) 4 mg Q6H PRN IVP 05/01/17 16:15 (Narcan Inj) 0.4 mg UNSCH PRN IV PUSH 05/01/17 16:15 (Rebeka-Colace) 1 tab BID PO 05/01/17 21:00 (Milk Of Magnesia Liq) 30 ml Q12H PRN PO 05/01/17 16:15 (Senokot) 17.2 mg Q12H PRN PO 05/01/17 16:15 (Dulcolax Supp) 10 mg DAILY PRN RECTAL 05/01/17 16:15 (Lactulose Liq) 30 ml DAILY PRN PO 05/01/17 16:15 (Lovenox Inj) 40 mg Q24H SQ 05/02/17 09:00 (KlonoPIN) 0.5 mg HS PO 05/01/17 21:00 05/01/17 23:41 (Vasotec Inj) 1.25 mg Q6H PRN IV PUSH 05/01/17 16:45 (D50w (Vial) Inj) 50 ml UNSCH PRN IV PUSH 05/01/17 16:45 (Glucagon Inj) 1 mg UNSCH PRN OTHER 05/01/17 16:45 (NovoLOG SUPPLEMENTAL SCALE) 1 ACHS SLIDING SCALE SQ 05/01/17 17:00 (Flexeril) 5 mg Q8H PRN PO 05/01/17 16:45 05/02/17 01:33 Physical Exam Vital Signs Vital Signs Date Time Temp Pulse Resp B/P (MAP) Pulse Ox O2 Delivery O2 Flow Rate FiO2 05/02/17 12:24 97.9 100 20 125/78 (94) 97 05/02/17 01:07 21 Lab Results Test 05/01/17 21:07 05/02/17 05:35 Random Glucose 168 MG/DL 138 MG/DL White Blood Count 6.5 TH/MM3 Red Blood Count 4.77 MIL/MM3 Hemoglobin 12.5 GM/DL Hematocrit 38.0 % Mean Corpuscular Volume 79.6 FL Mean Corpuscular Hemoglobin 26.1 PG Mean Corpuscular Hemoglobin Concent 32.8 % Red Cell Distribution Width 16.2 % Platelet Count 373 TH/MM3 Mean Platelet Volume 7.4 FL Neutrophils (%) (Auto) 59.6 % Lymphocytes (%) (Auto) 31.2 % Monocytes (%) (Auto) 7.1 % Eosinophils (%) (Auto) 1.1 % Basophils (%) (Auto) 1.0 % Neutrophils # (Auto) 3.9 TH/MM3 Lymphocytes # (Auto) 2.0 TH/MM3 Monocytes # (Auto) 0.5 TH/MM3 Eosinophils # (Auto) 0.1 TH/MM3 Basophils # (Auto) 0.1 TH/MM3 CBC Comment DIFF FINAL Differential Comment Erythrocyte Sedimentation Rate 12 mm/hr Mix DRVV Patient/Normal 1:1 Blood Urea Nitrogen 15 MG/DL Creatinine 0.73 MG/DL Total Protein 7.5 GM/DL Albumin 3.7 GM/DL Calcium Level 9.2 MG/DL Alkaline Phosphatase 55 U/L Aspartate Amino Transf (AST/SGOT) 12 U/L Alanine Aminotransferase (ALT/SGPT) 29 U/L Total Bilirubin 0.5 MG/DL Sodium Level 140 MEQ/L Potassium Level 3.5 MEQ/L Chloride Level 106 MEQ/L Carbon Dioxide Level 25.8 MEQ/L Anion Gap 8 MEQ/L Estimat Glomerular Filtration Rate 87 ML/MIN C-Reactive Protein LESS THAN 0.29 MG/DL Triglycerides Level 136 MG/DL Cholesterol Level 156 MG/DL LDL Cholesterol 75 MG/DL HDL Cholesterol 53.5 MG/DL Cholesterol/HDL Ratio 2.91 RATIO Mental Status Examination Appearance: Appropriate Consciousness: Alert Orientation: Person, Place, Date/Time Motor Activity: Normal gait Speech: Unremarkable Language: Adequate Fund of Knowledge: Adequate Attention and Concentration: Easily Distracted Mood: Oppositional Affect: Irritable Thought Process & Associations: Other ([place]) Thought Content: Delusional Hallucination Type: Other (Unable to assess this patient superficially cooperative) Delusion Type: Paranoid Suicidal Ideation: No Suicidal Plan: No Suicidal Intention: No Homicidal Ideation: No Homicidal Plan: No Homicidal Intention: No Insight: Poor Judgment: Poor Assessment & Plan Problem List: (1) Unspecified psychosis ICD Codes: F29 - Unspecified psychosis not due to a substance or known physiological condition Assessment & Plan Patient is a 41-year-old woman, with no formal past psychiatric history was admitted to the medical service for right arm numbness and paresthesias in upon neurological workup was negative on imaging with possible suspicion of TIA but also was noted to have some disorganization recently with poor sleep along with increasing paranoid delusions of other peers and hospital against her. Patient this time we put under Gaytan act due to concern of patient's ability to care for self secondary to ongoing symptomatology and will be admitted to the inpatient medical/psychiatry unit for further evaluation and management. We will recommend starting quetiapine 25 mg p.o. twice daily for psychosis along with diphenhydramine 50 mg p.o. at bedtime as needed insomnia and lorazepam 1 mg p.o. every 6 hours as needed anxiety. Patient's agreed to be healthcare surrogate during her admission. Case discussed with treatment team. Patient to be transferred to the medical/psychiatry unit once bed is available. Consult appreciated. Royal Lima MD May 02, 2017 15:44
[2017-05-02] MEDS ORDERED: clonazePAM 0.5 MG TAB PO SCH (17:00)
[2017-05-02] MEDS ORDERED: clonazePAM 0.5 MG TAB PO PRN (17:00)
[2017-05-02] MEDS ORDERED: metFORMIN HCL 500 MG TAB PO SCH (18:00)
[2017-05-03] MEDS ORDERED: LOSARTAN 50 MG TAB PO SCH (09:00)
[2017-05-03] MEDS ORDERED: REME15TA PO (11:04)
[2017-05-03 17:26] LABS: PROTEIN C ACTIVITY 152 % (70 - 150); PROTEIN S ACTIVITY 123 % (50 - 160)
[2017-05-04 19:53] LABS: CARDIOLIPIN AB IGA LESS THAN 11.0 APL (0-11)
[2017-05-05 07:52] LABS: DRVVT 1:1 MIX ND (CORRECTED); DRVVT MIX CONFIRM ND (()); HEXAGONAL PHASE CONFIRM ND (NEGATIVE)
[2017-05-05 13:53] LABS: BETA2 GLYCOPROTEIN I AB IGA LESS THAN 9.0 SAU (< OR = 20); BETA2 GLYCOPROTEIN I AB IGG LESS THAN 9.0 SGU (< OR = 20); BETA2 GLYCOPROTEIN I AB IGM LESS THAN 9.0 SMU (< OR = 20)
[2017-05-06 03:52] LABS: ANTI-THROMBIN III ACT 101 (80-120)
== END 2017-05-02 18:38 | DRG 69 ==
LOC: NEPC 13:01 → EEVIPCON 16:17 → NEDA 16:17 → UNDOADMOB 16:17 → N05A 16:58 → NEDA 16:58 → INTOOBSV 05-02 15:38 → OBSVTOIN 05-02 15:38 → UNDODISOB 05-02 18:38
PROVIDERS: ADMIT Family Medicine; ATTEND Family Medicine
DX: G45.9 Transient cerebral ischemic attack, unspecified (principal); E11.65 Type 2 diabetes mellitus with hyperglycemia; I10 Essential (primary) hypertension; F29 Unspecified psychosis not due to a substance or known physiological condition; E78.5 Hyperlipidemia, unspecified; M25.552 Pain in left hip; M79.605 Pain in left leg; G47.00 Insomnia, unspecified; F41.9 Anxiety disorder, unspecified; Z83.3 Family history of diabetes mellitus; Z82.49 Family history of ischemic heart disease and other diseases of the circulatory system; Z79.84 Long term (current) use of oral hypoglycemic drugs
CPT/HCPCS: 70450; 70544; 70553; 71045; 80053; 80061; 81240; 81241; 82550; 82947; 82948; 83036; 83735; 84484; 85025; 85300; 85303; 85306; 85610; 85613; 85652; 85730; 86140; 86146; 86147; 93005; 93306; 93880; A9577; G0378

== ENCOUNTER 2017-05-02 19:15 | Inpatient (IN) | payer OTHER ==
[~2017-05-02 19:15] MED LIST changes: +ASA325 PO; +CLON1TAB PO; +CYCL10TA PO
[2017-05-02] MEDS ORDERED: diphenhydrAMINE HCL 50 MG CAP PO PRN (20:15)
[2017-05-02] MEDS ORDERED: ACETAMINOPHEN 325 MG TAB PO PRN (20:15)
[2017-05-02] MEDS ORDERED: ALUMINUM/MAGNESIUM/SIMETH 30 ML CUP PO PRN (20:15)
[2017-05-02] MEDS ORDERED: LORazepam 1 MG TAB PO PRN (20:15)
[2017-05-02] MEDS ORDERED: LORazepam 2 MG/ML VIAL IM PRN (20:15)
[2017-05-02] MEDS ORDERED: MAGNESIUM HYDROXIDE SUSP 30 ML CUP PO PRN (20:15)
[2017-05-02] MEDS: REMOVE OLD PATCH T-DERMAL SCH (20:33)
[2017-05-02] MEDS: QUEtiapine FUMARATE 25 MG TAB PO SCH (21:00)
[2017-05-02] MEDS ORDERED: LOSARTAN 50 MG TAB PO SCH (22:56)
[2017-05-02] MEDS: metFORMIN HCL 500 MG TAB PO SCH (23:08)
[2017-05-03 06:00] VITALS: BP 110/61; PULSE 81; RESP 18; TEMP 97.5; O2SAT 98
[2017-05-03] MEDS: metFORMIN HCL 500 MG TAB PO SCH (08:13)
[2017-05-03] MEDS: REMOVE OLD PATCH T-DERMAL SCH (08:16)
[2017-05-03] MEDS: QUEtiapine FUMARATE 25 MG TAB PO SCH (08:16)
[2017-05-03] MEDS ORDERED: NICOTINE 21 MG/24 HR PATCH T-DERMAL SCH (09:00)
[2017-05-03] MEDS ORDERED: REME15TA PO (11:04)
--- NOTE | 2017-05-03 11:22 | HHI.HP ---
Provisional Diagnosis Admission Date May 02, 2017 at 19:21 [place] I. Major depressive disorder single episode severe with psychotic features Certification of Person's Competence To Provide Express and Informed Consent I have personally examined Federica Stinson , a person being served at [facility] on, May 03, 2017 11:12. Express and informed consent means consent voluntarily given in writing, by a competent person, after sufficient explanation and disclosure of the subject matter involved to enable the person to make a knowing and willful decision without any element of force, fraud, deceit, duress, or other form of constraint or coercion. This person is 18 years of age or older, is not now known to be incompetent to consent to treatment with a guardian advocate, and does not have a health care surrogate or proxy currently making medical treatment decisions. I have found this person to be one of the following: [xxx] Competent to provide express and informed consent, as defined above, for voluntary admission to this facility and is competent to provide express and informed consent for treatment. He/she has the consistent capacity to make well reasoned, willful, and knowing decisions concerning his or her medical or mental health treatment. The person fully and consistently understands the purpose of the admission for examination/placement and is fully capable of personally exercising all rights assured [place] Incompetent to provide express and informed consent to voluntary admission, and this is incompetent to provide express and informed consent to treatment. The person must be transferred to involuntary status and a petition for a guardian advocate filed with the Circuit Court. [] Refusing to provide express and informed consent to voluntary admission but is competent to provide express and informed consent for treatment. The person must be discharged or transferred to involuntary status. Form shall be completed within 24 hours of a person's arrival at the receiving facility and filed in the clinical record of each person: 1. Admitted on a voluntary basis 2. Permitted to provide express and informed consent to his/her own treatment 3. Allowed to transfer from involuntary to voluntary status 4. Prior to permitting a person to consent to his or her own treatment after having been previously found incompetent to consent to treatment. 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 During this period of time she showed some depressive signs and also showed some signs of paranoia and psychosis. She did have some issues with sleep deprivation prior to this. Patient was seen in consultation by Dr. Lima yesterday he felt there was significant loss of touch with reality that he initiated a Gaytan act. Patient is transferred to [facility] yesterday for further care and attention. Patient rates seen by me today. Patient gives history of poor sleep for the past at least one to 2 weeks with a.m. anergy and decreased energy, some decreased concentration and attention of mild increased irritability. There is some anhedonia also noted with this. She does deny voices or visions. Though there is some increased psychotic behavior of a conspiratorial nature. She does denies suicidality homicidality to me. Initially focus just aligned to be discharged home with her and 3 children. Patient denies any prior history of mental health issues psychiatric contact hospitalizations a psychotropic medications. Denies any alcohol or drug use. After our session I did call patient's 's name is Mikael at [phone] the arrange to meet this morning. I also talked to patient 's physician Dr. jackson who concurred with the above. I also talked with Dr. 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 I also then spoke with Dr. Mario Henry who agreed to see patient in follow-up tomorrow morning at [facility] at [address] Henry did join the family session this morning and introduce himself to the patient and her . They agreed to the follow-up. I feel patient does suffer from major depression this at some psychotic features to it. I recommend initiation of Remeron 15 mg at at bedtime, she did take time off from work. I have already notified Dr. yousif of this. Patient to meet with Dr. Henry tomorrow morning. Follow-up to commence from there patient and both agreed to this but haven't other medications and by Dr. jackson during her medical admit she'll be given to her also Review of Systems Constitutional: DENIES: Diaphoretic episodes, Fatigue, Fever, Weight gain, Weight loss, Chills, Dizziness, Change in appetite, Night Sweats Endocrine: DENIES: Abnorml menstrual pattern, Heat/cold intolerance, Polydipsia , Polyuria, Polyphagia Eyes: DENIES: Blurred vision, Diplopia, Eye inflammation, Eye pain, Vision loss , Photosensitivity, Double Vision Ears, nose, mouth, throat: DENIES: Tinnitus, Hearing loss, Vertigo, Nasal discharge, Oral lesions, Throat pain, Hoarseness, Ear Pain, Running Nose, Epistaxis, Sinus Pain, Toothache, Odynophagia Respiratory: DENIES: Apneas, Cough, Snoring, Wheezing, Hemoptysis, Sputum production, Shortness of breath Cardiovascular: DENIES: Chest pain, Palpitations, Syncope, Dyspnea on Exertion , PND, Lower Extremity Edema, Orthopnea, Claudication Gastrointestinal: DENIES: Abdominal pain, Black stools, Bloody stools, Constipation, Diarrhea, Nausea, Vomiting, Difficulty Swallowing, Anorexia Genitourinary: DENIES: Abnormal vaginal bleeding, Dysmenorrhea, Dyspareunia, Sexual dysfunction, Urinary frequency, Urinary incontinence, Urgency, Hematuria , Dysuria, Nocturia, Vaginal discharge Musculoskeletal: DENIES: Joint pain, Muscle aches, Stiffness, Joint Swelling, Back pain, Neck pain Integumentary: DENIES: Abnormal pigmentation, Pruritus, Rash, Nail changes, Breast masses, Breast skin changes, Nipple discharge Hematologic/lymphatic: DENIES: Bruising, Lymphadenopathy Immunologic/allergic: DENIES: Eczema, Urticaria Neurologic: DENIES: Abnormal gait, Headache, Localized weakness, Paresthesias, Seizures, Speech Problems, Tremor, Poor Balance Psychiatric: COMPLAINS OF: Confusion, Depression, Delusions (mild and resolving ) Past Psych History Psychological trauma history Patient denies Violence risk - others (6 mos) Low Violence risk - self (6 mos) Low Substance Abuse History Drugs/Alcohol past 12 months Denies Past Family Social History Coded Allergies: Sulfa (Sulfonamide Antibiotics) (Unverified Allergy, Severe, Rash, 05/01/17 ) Active Scripts Mirtazapine (Remeron) 15 Mg Tab, 15 MG PO HS for Depression Control, #30 TAB 0 Refills Prov:Gokul Cleary MD 05/03/17 Clonazepam (Clonazepam) 1 Mg Tab, 1 MG PO HS Y for insomnia, #30 TAB 0 Refills Prov:Verzal,Yasmine R. MD 05/02/17 Aspirin (Px Aspirin) 325 Mg Tab, 325 MG PO DAILY, #30 TAB Prov:Yasmine Jackson MD 05/02/17 Cyclobenzaprine (Flexeril) 10 Mg Tab, 10 MG PO TID Y for muscle spasm, #90 TAB 3 Refills Prov:Yasmine Jackson MD 05/02/17 Losartan (Cozaar) 50 Mg Tab, 50 MG PO HS for Blood Pressure Management, #30 TAB 3 Refills Prov:Yasmine Jackson MD 05/02/17 Metformin (Metformin) 500 Mg Tab, 500 MG PO BIDPC for Blood Sugar Management, # 60 TAB 3 Refills Prov:Yasmine Jackson MD 05/02/17 Current Medications Medications (Trade) Dose Ordered Sig/Cyril Route Start Time Stop Time Status Last Admin (Ativan) 1 mg Q6H PRN PO 05/02/17 20:15 (Ativan Inj) 1 mg Q6H PRN IM 05/02/17 20:15 (Benadryl) 50 mg HS PRN PO 05/02/17 20:15 05/02/17 23:08 (Tylenol) 650 mg Q4H PRN PO 05/02/17 20:15 05/03/17 08:19 (Milk Of Magnesia Liq) 30 ml DAILY PRN PO 05/02/17 20:15 (Mag-Al Plus Susp Liq) 30 ml Q6H PRN PO 05/02/17 20:15 (Habitrol 21 Mg Patch.24 Hr) 1 patch DAILY T-DERMAL 05/03/17 09:00 (SEROquel) 25 mg BID PO 05/02/17 21:00 Miscellaneous Information 1 DAILY T-DERMAL 05/02/17 21:00 (Cozaar) 50 mg HS PO 05/02/17 22:56 05/02/17 23:09 (Glucophage) 500 mg BID PO 05/02/17 22:55 05/03/17 08:13 Family Psych History Patient denies Social History 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 2) Patient cooperative intelligent has supportive family Physical Exam Patient medically cleared through prior hospitalization patient sitting quietly in her room she is in no acute distress, patient is in no respiratory distress, no complaints of abdominal pain. Patient moving all 4 extremities without difficulty. No abnormal motor movement noted Vital Signs Vital Signs Date Time Temp Pulse Resp B/P (MAP) Pulse Ox O2 Delivery O2 Flow Rate FiO2 05/03/17 06:00 97.5 81 18 110/61 (77) 98 Mental Status Examination Appearance: Appropriate Consciousness: Alert Orientation: x4 Motor Activity: Normal gait Speech: Unremarkable, Hesitant, Slow Language: Adequate Fund of Knowledge: Adequate Attention and Concentration: Adequate (to slightly distracted) Memory: Unremarkable Mood: Sad Affect: Other (marked decreased range and intensity) Thought Process & Associations: Intact Thought Content: Appropriate Hallucination Type: None Delusion Type: None Suicidal Ideation: No Suicidal Plan: No Suicidal Intention: No Homicidal Ideation: No Homicidal Plan: No Homicidal Intention: No Insight: Adequate Judgment: Adequate Assessment & Plan Problem List: (1) Major depressive disorder, single episode, severe w psychotic behavior ICD Codes: F32.3 - Major depressive disorder, single episode, severe with psychotic features Assessment & Plan This time patient does not meet criteria for inpatient psychiatric hospitalization. This will lift Gaytan act allow patient to be discharged herself she will follow-up with Dr. Mario Henry tomorrow at [facility] at 11 AM, will be Rx for Remeron 15 mg at at bedtime Estimated LOS: days Discharge Planning See above Request HC Surrog/Guard Advoc?: No Gokul Cleary MD May 03, 2017 11:22
--- NOTE | 2017-05-03 11:29 | HHI.DS ---
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 During this period of time she showed some depressive signs and also showed some signs of paranoia and psychosis. She did have some issues with sleep deprivation prior to this. Patient was seen in consultation by Dr. Lima yesterday he felt there was significant loss of touch with reality that he initiated a Gaytan act. Patient is transferred to E yesterday for further care and attention. Patient rates seen by me today. Patient gives history of poor sleep for the past at least one to 2 weeks with a.m. anergy and decreased energy, some decreased concentration and attention of mild increased irritability. There is some anhedonia also noted with this. She does deny voices or visions. Though there is some increased psychotic behavior of a conspiratorial nature. She does denies suicidality homicidality to me. Initially focus just aligned to be discharged home with her and 3 children. Patient denies any prior history of mental health issues psychiatric contact hospitalizations a psychotropic medications. Denies any alcohol or drug use. After our session I did call patient's 's name is Mikale at [phone] the arrange to meet this morning. I also talked to patient 's physician Dr. payan who concurred with the above. I also talked with Dr. 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 I also then spoke with Dr. Mario Henry who agreed to see patient in follow-up tomorrow morning at [facility] at [address] Henry did join the family session this morning and introduce himself to the patient and her . They agreed to the follow-up. I feel patient does suffer from major depression this at some psychotic features to it. I recommend initiation of Remeron 15 mg at at bedtime, she did take time off from work. I have already notified Dr. yousif of this. Patient to meet with Dr. Henry tomorrow morning. Follow-up to commence from there patient and both agreed to this but haven't other medications and by Dr. payan during her medical admit she'll be given to her also Tobacco Use In Past 30 Days: No Tobacco Past 30 Days Alcohol Use: 2-4 Times Per Month Hospital Course Please see above dictation under brief history, patient does not meet Gaytan criteria will lift Gaytan act. Patient to be discharged to her family. Follow- up Dr. Mario Henry tomorrow morning at [facility] antibody 11 AM. Rx Remeron 15 mg at at bedtime, may continue her own schedule medications. Patient seen this morning with her also visited by Dr. Mario Henry denies suicidality homicidality voices or visions, able contracted to no harm is agreeable to the above discharge recommendations Results Blood Pressure 110 / 61 Vital Signs Date Time Temp Pulse Resp B/P (MAP) Pulse Ox O2 Delivery O2 Flow Rate FiO2 05/03/17 06:00 97.5 81 18 110/61 (77) 98 Please see EMR for lab results her hospitalization no labs done at this hospitalization Summary of Procedures None done Pending results at discharge: No Medications # of Antipsychotic meds at D/C: 0 Approp Antipsych med options 1 - Minimum of three failed multiple trials of monotherapy. 2 - Documented plan to taper to monotherapy due to previous use of multiple meds OR cross-taper in progress at D/C. 3 - Documentation of augmentation of Clozapine. 4 - Justification other than those listed in allowable values 1-3, document here : Discharge Discharge Date: May 03, 2017 Discharge Diagnosis: (1) Major depressive disorder, single episode, severe w psychotic behavior Diagnosis: Principal ICD Code: F32.3 - Major depressive disorder, single episode, severe with psychotic features Pt Condition on Discharge: Stable Discharge Disposition: Discharge Home Discharge Instructions Diet Instructions: As Tolerated, No Restrictions Activities you can perform: Regular-No Restrictions Scheduled Appointment: follow-up Dr. Mario Henry at [facility] tomorrow morning at about 11 AM Appointment Date: May 04, 2017 Appointment Time: 11am Discharge Time > 30 minutes Mental Status Examination Appearance: Appropriate Consciousness: Alert Orientation: x4 Motor Activity: Normal gait Speech: Unremarkable, Hesitant, Slow Language: Adequate Fund of Knowledge: Adequate Attention and Concentration: Adequate (to slightly distracted) Memory: Unremarkable Mood: Sad Affect: Other (marked decreased range and intensity) Thought Process & Associations: Intact Thought Content: Appropriate Hallucination Type: None Delusion Type: None Suicidal Ideation: No Suicidal Plan: No Suicidal Intention: No Homicidal Ideation: No Homicidal Plan: No Homicidal Intention: No Insight: Adequate Judgment: Adequate Discharge/Advance Care Plan Health Problems: (1) Major depressive disorder, single episode, severe w psychotic behavior Goals to promote your health * To prevent worsening of your condition and complications * To maintain your health at the optimal level Directions to meet your goals Take your medications as prescribed Follow your dietary instruction Follow activity as directed Keep your appointments as scheduled Take your immunizations and boosters as scheduled If your symptoms worsen call your PCP, if no PCP go to Urgent Care Center or Emergency Room For 03/09 questions related to your inpatient stay or results of tests pending at discharge, please contact Dr. Gokul Cleary at Smoking is Dangerous to Your Health. Avoid second hand smoking Gokul Cleary MD May 03, 2017 11:29
--- NOTE | 2017-05-03 18:55 | EKG ---
Date Performed: 05/03/2017 Time Performed: 07:14:36 PTAGE: 41 years EKG: Sinus rhythm PROBABLE INFERIOR MYOCARDIAL INFARCTION , OF INDETERMINATE AGE CONSIDER ANTEROSEPTAL WA, AGE INDETER MINATE ABNORMAL ECG PREVIOUS TRACING : 05/01/2017 13.07 DOCTOR: Jose Nava Interpretating Date/Time 05/03/2017 18:54:18
== END 2017-05-03 12:34 | disposition home or self-care (01) | DRG 885 ==
LOC: UNDOADMIN 19:21 → H4EA 19:21 → EEVIPCON 19:21 → H4EA 05-03 02:02
PROVIDERS: ADMIT Psychiatry & Neurology Psychiatry; ATTEND Psychiatry & Neurology Psychiatry
DX: F32.3 Major depressive disorder, single episode, severe with psychotic features (principal)
CPT/HCPCS: 93005; Q0163